=== PATIENT | female | born 1980 | race Two or more races ===

== ENCOUNTER 2018-03-10 10:49 | Inpatient (IN) | payer SELFPAY ==
[~2018-03-10] VITALS: Ht 160 cm; Wt 82.1 kg
[2018-03-10] MEDS ORDERED: CITRIC ACID/SODIUM CITRATE 30 ML SOLUTION. PO ONE (11:00)
[2018-03-10 11:46] LABS: BASO % 1 % (0-3); EOS # 0.1 x10^3/uL (0.0-0.7); EOS % 2 % (0-3); HEMATOCRIT 38.8 % (36.0-47.0); HEMOGLOBIN 13.5 g/dL (12.0-15.5); LYMPH # 1.5 x10^3/uL (1.0-4.8); LYMPH % 17 % (24-48); MEAN CORPUSCULAR HEMOGLOBIN 32 pg (25-35); MEAN CORPUSCULAR HGB CONC 35 g/dL (31-37); MEAN CORPUSCULAR VOLUME 92 fL (79-100); MONO # 0.6 x10^3/uL (0.0-1.1); MONO % 7 % (0-9); NEUT # 6.6 x10^3uL (1.8-7.7); NEUT % 74 % (31-73); PLATELET COUNT 195 x10^3/uL (140-400); RED BLOOD COUNT 4.25 x10^6/uL (3.50-5.40); RED CELL DISTRIBUTION WIDTH 13.1 % (11.5-14.5); WHITE BLOOD COUNT 8.9 x10^3/uL (4.0-11.0)
[2018-03-10] MEDS: IV RINGERS,LACTATED 1000ML 1,000 ML IV PRN ×2 (12:19→21:53)
--- NOTE | 2018-03-10 12:19 | PDOC1 ---
OB - History Hx of Present Care: Good Care Ultrasounds: Normal mid trimester US Obstetrical Complications: None Medical Complications: None Past Family/Social History * Past Medical, Surgical, Family and Obstetric Histories reviewed from chart. Rubella: Immune RPR/VDRL: Negative GBS Status: Negative HBsAG: Negative OB - Chief Complaint & HPI Date of Admission: Date of Admission: Mar 10, 2018 at 10:49 Chief Complaint/History : 4 Para: 2 EGA: 39 Reason for admission: section Indication for : desires repeat Admission Nurse Assessment Rev: Yes OB - Admission Exam Physical Exam HEENT: Normal Heart: Regular Rate Lungs: Clear Abdomen: Gravid, Non tender, Soft Extremities: Edema Reflexes: Normal Cervical Dilatation: None Effacement: 25% Station: Ballotable Membranes: Intact Amniotic Fluid: Clear Heart Rate: Normal Accelerations: Accelerations Present Decelerations: No decelerations Contractions on Admission: >10 Minutes Apart Intensity: Mild Text A: 39 wks IUP Previous c/s P: Admit for repeat c/s. ERICK LINDSAY Jr, MD Mar 10, 2018 12:19
[2018-03-10] MEDS ORDERED: MORPHINE PF 5 MG/10 ML VIAL. ONE (12:47)
[2018-03-10] MEDS ORDERED: fentaNYL PF VIAL 100 MCG/2 ML VIAL ONE (12:48)
[2018-03-10] MEDS ORDERED: PHENYLEPHRINE in 0.9% NACL PF 1 MG/10 ML SYRINGE. IV ONE (12:48)
[2018-03-10] MEDS ORDERED: BUPIVACAINE MPF 0.75% DEXTROSE 2 ML AMPUL. ONE (12:54)
[2018-03-10] MEDS ORDERED: ceFAZolin 2GM PREMIX 2 GM/50 ML BAG IV ONE (13:00)
[2018-03-10] MEDS ORDERED: OXYTOCIN 10 UNIT/ML VIAL. ONE (13:02)
[2018-03-10] MEDS ORDERED: miSOPROStol 200MCG TAB 200 MCG TABLET PR ONE (13:15)
[2018-03-10] MEDS ORDERED: miSOPROStol 200MCG TAB 200 MCG TABLET ONE (13:16)
--- NOTE | 2018-03-10 13:56 | PDOC4 ---
OB Operative Note Date: Mar 10, 2018 PRE OP DIAGNOSIS: Previoujs C- section POST OP DIAGNOSIS: Previous C- section OPERATION PERFORMED: [facility] Surgeon Dr. Biswas Anesthesia: Regional (Spinal) Blood Loss 700 ml Specimen placenta and OB Findings: Position (Vertex), Sex (Male), (8/9), Weight (9 Lb 10 oz), Nuchal Cord (x1) Complications none Additional Remarks pt. ERICK Lockett Jr, MD Mar 10, 2018 13:56
[2018-03-10] MEDS ORDERED: diphenhydrAMINE ORAL ELIXIR 12.5 MG/5 ML ML PO PRN (14:00)
[2018-03-10] MEDS ORDERED: OXYTOCIN 30 UNIT/500 ML PREMIX 500 ML IV PRN (14:00)
[2018-03-10] MEDS ORDERED: 0.9 % SODIUM CHLORIDE 10 ML DISP.SYRIN. IV PRN (14:00)
[2018-03-10] MEDS ORDERED: SIMETHICONE 80 MG TAB.CHEW PO PRN (14:00)
[2018-03-10] MEDS ORDERED: ZOLPIDEM 5 MG TABLET. PO PRN (14:00)
[2018-03-10] MEDS ORDERED: ONDANSETRON PF 4 MG/2 ML VIAL. IV PRN (14:00)
--- NOTE | 2018-03-10 14:37 | OP ---
DATE OF SURGERY: 03/10/2018 PREOPERATIVE DIAGNOSES: 1. 39 weeks intrauterine . 2. Previous section. POSTOPERATIVE DIAGNOSES: 1. 39 weeks intrauterine . 2. Previous section. PROCEDURE: Repeat low transverse section. SURGEON: Erick Biswas MD. ANESTHESIA: Spinal. ESTIMATED BLOOD LOSS: 700 mL. COMPLICATIONS: None. FINDINGS: Viable male , Apgars 8 and 9, weight 9 pounds 10 ounces, nuchal cord x 1, 3-vessel cord placenta delivered manually. SUMMARY: A 37-year-old female who presented at term gestation for repeat section. Was counseled on risks, benefits and expectations as well as for scar revision and voiced clear understanding to proceed. DESCRIPTION OF PROCEDURE: The patient was taken to surgery suite and placed in dorsal supine position. She was prepped with ChloraPrep and draped in a sterile fashion. After adequate anesthesia, an elliptical incision was made with the scalpel to remove the previous scar along with Allis clamps and Bovie cautery. The incision was then carried through the fascia. The fascia was extended superiorly as well as inferiorly with curved Yanez scissors. The peritoneum was grasped with 2 hemostats and entered sharply with Metzenbaum scissors and this incision was extended superiorly as well as inferiorly. There were a few abdominal adhesions of the omentum that were bluntly dissected off. Low transverse hysterotomy incision made with a scalpel down to the amniotic sac. Hysterotomy incision was extended laterally and superiorly digitally. Amniotomy was performed with Allis clamp, which elicited moderate amount of clear fluid. With fundal pressure, the infant's head was delivered in a smooth atraumatic manner. With additional fundal pressure, the posterior shoulder was delivered followed by the anterior shoulder. Rest of the male was delivered. Nuchal cord x 1 was visualized and reduced. Infant was suctioned with bulb syringe orally and nasally, umbilical cord was clamped twice and cut and viable male was handed to waiting nursing staff. Umbilical cord blood was then obtained. Three-vessel cord placenta was delivered manually. The uterus was then exteriorized and cleared of clot and debris with a moist lap. The hysterotomy incision was reapproximated using 1-0 Vicryl suture in a running locked fashion and imbricated layer was utilized for better hemostasis. There is a [id number] suture placed in the right apex of the hysterotomy incision for better hemostasis. An 800 mcg Cytotec was also placed inside the uterus to help with uterine tone. The uterus then palpated firm. Fallopian tubes and ovaries appeared normal bilaterally. Posterior cul-de-sac was cleared of clot and debris with a moist lap. The pericolic gutters were cleared of clot and debris with moist lap. There were some omental adhesions to the uterus as well as the abdominal sidewall, which were removed with the aid of Bovie cautery. The hysterotomy incision was hemostatic. Interceed was placed over the hysterotomy incision in an inverted T fashion. The Glynn ring retractor was removed. The peritoneum was reapproximated using 1-0 Vicryl suture in running fashion. Fascia was reapproximated with 0 Vicryl suture in a running fashion. Subcutaneous tissue was reapproximated using 1-0 Vicryl suture in a running fashion. The skin was reapproximated using shahida. The patient tolerated the procedure well, was sent to recovery room in stable condition. Sponge and needle count correct x 3. ERICK BIWSAS MD DR: SAMEER/sayda JOB#: [id number] / [id number]
[2018-03-10] MEDS ORDERED: KETOROLAC 30 MG/ML VIAL. IV PRN (15:00)
[2018-03-10 16:45] VITALS: BP_SYST 103; BP_SYST 112; BP_DIAS 46; BP_DIAS 54
--- NOTE | 2018-03-10 16:52 | NUR ---
Cytotec back timed to time of administration, administered via uterine by Dr. Biswas.
[2018-03-10] MEDS: KETOROLAC 30 MG/ML VIAL. IV PRN (17:00)
[2018-03-10] MEDS: FERROUS SULFATE 325 MG TABLET. PO SCH (17:00)
[2018-03-10 17:09] LABS: BILIRUBIN,URINE NEGATIVE (NEG); CLARITY,URINE CLEAR; COLOR,URINE YELLOW; NITRITE,URINE NEGATIVE (NEG); PROTEIN,URINE NEGATIVE (NEG-TRACE); UROBILINOGEN,URINE 0.2 mg/dL (0.2 mg/dL)
[2018-03-10 17:14] LABS: BACTERIA,URINE FEW /HPF (0-FEW); RBC,URINE 0 /HPF (0-2); SQUAMOUS EPITHELIAL CELL,UR OCC /LPF; WBC,URINE RARE /HPF (0-4)
[2018-03-10 18:15] VITALS: BP 113/45
[2018-03-10 20:30] VITALS: BP 111/53
[2018-03-10 23:35] VITALS: BP 94/44
[2018-03-11] MEDS: KETOROLAC 30 MG/ML VIAL. IV PRN (02:20)
[2018-03-11 04:49] LABS: BASO % 0 % (0-3); EOS % 0 % (0-3); HEMATOCRIT 31.9 % (36.0-47.0); HEMOGLOBIN 11.7 g/dL (12.0-15.5); LYMPH # 1.6 x10^3/uL (1.0-4.8); LYMPH % 14 % (24-48); MEAN CORPUSCULAR HEMOGLOBIN 33 pg (25-35); MEAN CORPUSCULAR HGB CONC 37 g/dL (31-37); MEAN CORPUSCULAR VOLUME 90 fL (79-100); MONO # 1.1 x10^3/uL (0.0-1.1); MONO % 10 % (0-9); NEUT # 8.9 x10^3uL (1.8-7.7); NEUT % 76 % (31-73); PLATELET COUNT 158 x10^3/uL (140-400); RED BLOOD COUNT 3.53 x10^6/uL (3.50-5.40); RED CELL DISTRIBUTION WIDTH 12.9 % (11.5-14.5); WHITE BLOOD COUNT 11.6 x10^3/uL (4.0-11.0)
[2018-03-11 05:39] VITALS: BP 129/72
--- NOTE | 2018-03-11 06:12 | PDOC ---
OB Progress Note Date of Service 03/11/18 Time of Evaluation 0610 Notes Pt. feeling well. No complaints. Lab Laboratory Tests Test 03/10/18 11:35 03/10/18 16:50 03/11/18 04:25 White Blood Count 8.9 x10^3/uL (4.0-11.0) 11.6 x10^3/uL (4.0-11.0) Red Blood Count 4.25 x10^6/uL (3.50-5.40) 3.53 x10^6/uL (3.50-5.40) Hemoglobin 13.5 g/dL (12.0-15.5) 11.7 g/dL (12.0-15.5) Hematocrit 38.8 % (36.0-47.0) 31.9 % (36.0-47.0) Mean Corpuscular Volume 92 fL (79-100) 90 fL (79-100) Mean Corpuscular Hemoglobin 32 pg (25-35) 33 pg (25-35) Mean Corpuscular Hemoglobin Concent 35 g/dL (31-37) 37 g/dL (31-37) Red Cell Distribution Width 13.1 % (11.5-14.5) 12.9 % (11.5-14.5) Platelet Count 195 x10^3/uL (140-400) 158 x10^3/uL (140-400) Neutrophils (%) (Auto) 74 % (31-73) 76 % (31-73) Lymphocytes (%) (Auto) 17 % (24-48) 14 % (24-48) Monocytes (%) (Auto) 7 % (0-9) 10 % (0-9) Eosinophils (%) (Auto) 2 % (0-3) 0 % (0-3) Basophils (%) (Auto) 1 % (0-3) 0 % (0-3) Neutrophils # (Auto) 6.6 x10^3uL (1.8-7.7) 8.9 x10^3uL (1.8-7.7) Lymphocytes # (Auto) 1.5 x10^3/uL (1.0-4.8) 1.6 x10^3/uL (1.0-4.8) Monocytes # (Auto) 0.6 x10^3/uL (0.0-1.1) 1.1 x10^3/uL (0.0-1.1) Eosinophils # (Auto) 0.1 x10^3/uL (0.0-0.7) 0.0 x10^3/uL (0.0-0.7) Basophils # (Auto) 0.0 x10^3/uL (0.0-0.2) 0.0 x10^3/uL (0.0-0.2) Treponema pallidum Antibody Nonreactive (Nonreactive) Urine Collection Type Unknown Urine Color Yellow Urine Clarity Clear Urine pH 7.0 Urine Specific [place] <=1.005 Urine Protein Negative mg/dL (NEG-TRACE) Urine Glucose (UA) Negative mg/dL (NEG) Urine Ketones (Stick) Negative mg/dL (NEG) Urine Blood Negative (NEG) Urine Nitrite Negative (NEG) Urine Bilirubin Negative (NEG) Urine Urobilinogen Dipstick 0.2 mg/dL (0.2 mg/dL) Urine Leukocyte Esterase Negative (NEG) Urine RBC 0 /HPF (0-2) Urine WBC Rare /HPF (0-4) Urine Squamous Epithelial Cells Occ /LPF Urine Bacteria Few /HPF (0-FEW) Laboratory Tests Test 03/10/18 11:35 03/10/18 16:50 03/11/18 04:25 White Blood Count 8.9 x10^3/uL (4.0-11.0) 11.6 x10^3/uL (4.0-11.0) Red Blood Count 4.25 x10^6/uL (3.50-5.40) 3.53 x10^6/uL (3.50-5.40) Hemoglobin 13.5 g/dL (12.0-15.5) 11.7 g/dL (12.0-15.5) Hematocrit 38.8 % (36.0-47.0) 31.9 % (36.0-47.0) Mean Corpuscular Volume 92 fL (79-100) 90 fL (79-100) Mean Corpuscular Hemoglobin 32 pg (25-35) 33 pg (25-35) Mean Corpuscular Hemoglobin Concent 35 g/dL (31-37) 37 g/dL (31-37) Red Cell Distribution Width 13.1 % (11.5-14.5) 12.9 % (11.5-14.5) Platelet Count 195 x10^3/uL (140-400) 158 x10^3/uL (140-400) Neutrophils (%) (Auto) 74 % (31-73) 76 % (31-73) Lymphocytes (%) (Auto) 17 % (24-48) 14 % (24-48) Monocytes (%) (Auto) 7 % (0-9) 10 % (0-9) Eosinophils (%) (Auto) 2 % (0-3) 0 % (0-3) Basophils (%) (Auto) 1 % (0-3) 0 % (0-3) Neutrophils # (Auto) 6.6 x10^3uL (1.8-7.7) 8.9 x10^3uL (1.8-7.7) Lymphocytes # (Auto) 1.5 x10^3/uL (1.0-4.8) 1.6 x10^3/uL (1.0-4.8) Monocytes # (Auto) 0.6 x10^3/uL (0.0-1.1) 1.1 x10^3/uL (0.0-1.1) Eosinophils # (Auto) 0.1 x10^3/uL (0.0-0.7) 0.0 x10^3/uL (0.0-0.7) Basophils # (Auto) 0.0 x10^3/uL (0.0-0.2) 0.0 x10^3/uL (0.0-0.2) Treponema pallidum Antibody Nonreactive (Nonreactive) Urine Collection Type Unknown Urine Color Yellow Urine Clarity Clear Urine pH 7.0 Urine Specific [place] <=1.005 Urine Protein Negative mg/dL (NEG-TRACE) Urine Glucose (UA) Negative mg/dL (NEG) Urine Ketones (Stick) Negative mg/dL (NEG) Urine Blood Negative (NEG) Urine Nitrite Negative (NEG) Urine Bilirubin Negative (NEG) Urine Urobilinogen Dipstick 0.2 mg/dL (0.2 mg/dL) Urine Leukocyte Esterase Negative (NEG) Urine RBC 0 /HPF (0-2) Urine WBC Rare /HPF (0-4) Urine Squamous Epithelial Cells Occ /LPF Urine Bacteria Few /HPF (0-FEW) Medications Current Medications Cefazolin Sodium/ Dextrose 50 ml @ 100 mls/hr 1X ONCE IV ; Start 03/10/18 at 11:00; Stop 03/10/18 at 11:29; Status DC Citric Acid/ Sodium Citrate (Bicitra) 30 ml 1X ONCE PO Last administered on at 12:45; Start 03/10/18 at 11:00; Stop 03/10/18 at 11:21; Status DC Ringer's Solution 1,000 ml @ 125 mls/hr Q8H PRN IV PER PROTOCOL Last administered on 03/10/18at 21:53; Start 03/10/18 at 12:00 Morphine Sulfate (Morphine Preservative Free) 5 mg STK-MED ONCE .ROUTE ; Start 03/10/18 at 12:47; Stop 03/10/18 at 12:49; Status DC Fentanyl Citrate (Fentanyl 2ml Vial) 100 mcg STK-MED ONCE .ROUTE ; Start at 12:48; Stop 03/10/18 at 12:50; Status DC Phenylephrine HCl (PHENYLEPHRINE in 0.9% NACL PF) 1 mg STK-MED ONCE IV ; Start 03/10/18 at 12:48; Stop 03/10/18 at 12:50; Status DC Bupivacaine HCl/ Dextrose (Marcaine Spinal 0.75%) 2 ml STK-MED ONCE .ROUTE ; Start 03/10/18 at 12:54; Stop 03/10/18 at 12:56; Status DC Oxytocin (Pitocin) 10 unit STK-MED ONCE .ROUTE ; Start 03/10/18 at 13:02; Stop 03/10/18 at 13:04; Status DC Ephedrine Sulfate (Akovaz) 50 mg STK-MED ONCE .ROUTE ; Start 03/10/18 at 13:09; Stop 03/10/18 at 13:11; Status DC Misoprostol (Cytotec 200mcg Tab) 200 mcg STK-MED ONCE .ROUTE ; Start 03/10/18 at 13:16; Stop 03/10/18 at 13:18; Status DC Sodium Chloride (Normal Saline Flush) 3 ml QSHIFT PRN IV AFTER MEDS AND BLOOD DRAWS; Start 03/10/18 at 14:00 Oxytocin/Sodium Chloride 500 ml @ 125 mls/hr CONT PRN IV EXCESSIVE POST- BLEEDING; Start 03/10/18 at 14:00; Stop 03/10/18 at 21:59; Status DC Ibuprofen (Motrin) 800 mg PRN Q4HRS PRN PO INFLAMMATION; Start 03/10/18 at 14: 00 Ondansetron HCl (Zofran) 4 mg PRN Q6HRS PRN IV NAUSEA/VOMITING; Start 03/10/18 at 14:00 Docusate Sodium (Colace) 100 mg PRN BID PRN PO CONSTIPATION; Start 03/10/18 at 14:00 Al Hydroxide/Mg Hydroxide (Mylanta Plus Xs) 30 ml PRN Q4HRS PRN PO HEARTBURN / GAS; Start 03/10/18 at 14:00 Simethicone (Gas-X) 80 mg PRN AFTMEALHC PRN PO GAS / BLOATING; Start 03/10/18 at 14:00 Diphenhydramine HCl (Benadryl Oral Elixir) 12.5 mg PRN Q6HRS PRN PO ITCHING; Start 03/10/18 at 14:00 Ferrous Sulfate (Feosol) 325 mg BIDWMEALS PO ; Start 03/10/18 at 17:00 Zolpidem Tartrate (Ambien) 5 mg PRN QHS PRN PO INSOMNIA, MAY REPEAT X1; Start 03/10/18 at 14:00 Oxycodone/ Acetaminophen (Percocet 5/325) 2 tab PRN Q4HRS PRN PO MODERATE PAIN , SEVERE PAIN; Start 03/10/18 at 14:00 Ketorolac Tromethamine (Toradol 30mg Vial) 30 mg PRN Q6HRS PRN IV PAIN Last administered on 03/11/18at 02:20; Start 03/10/18 at 14:00; Stop 03/15/18 at 13:59 Ketorolac Tromethamine (Toradol 30mg Vial) 30 mg PRN Q6HRS PRN IV PAIN; Start 03/10/18 at 15:00; Stop 03/15/18 at 14:59; Status UNV Misoprostol (Cytotec 200mcg Tab) 800 mcg 1X ONCE IN Last administered on at 13:24; Start 03/10/18 at 13:15; Stop 03/10/18 at 16:50; Status DC Exam Abd: soft, non tender, fundus firm Assessment PPD#2 s/p Plan of Care: See new orders (D/c home.) ERICK LINDSAY Jr, MD Mar 11, 2018 06:12
[2018-03-11 06:15] VITALS: BP 82/43
[2018-03-11] MEDS: FERROUS SULFATE 325 MG TABLET. PO SCH (08:00)
[2018-03-11] MEDS: IBUPROFEN 400 MG TABLET. PO PRN ×2 (09:48→15:55)
[2018-03-11] MEDS: DOCUSATE SODIUM 100 MG CAPSULE. PO PRN (09:50)
[2018-03-11 13:04] VITALS: BP 92/43
[2018-03-11 17:46] VITALS: BP 98/66
[2018-03-11 23:04] VITALS: BP 94/53
[2018-03-12] MEDS: IBUPROFEN 400 MG TABLET. PO PRN ×3 (03:36→19:33)
[2018-03-12 06:03] VITALS: BP 111/59
--- NOTE | 2018-03-12 08:00 | PDOC ---
OB Progress Note Date of Service 03/12/18 Time of Evaluation 0750 Notes Pt. feeling well. Pain controlled. No complaints. Lab Laboratory Tests Test 03/10/18 11:35 03/10/18 16:50 03/11/18 04:25 White Blood Count 8.9 x10^3/uL (4.0-11.0) 11.6 x10^3/uL (4.0-11.0) Red Blood Count 4.25 x10^6/uL (3.50-5.40) 3.53 x10^6/uL (3.50-5.40) Hemoglobin 13.5 g/dL (12.0-15.5) 11.7 g/dL (12.0-15.5) Hematocrit 38.8 % (36.0-47.0) 31.9 % (36.0-47.0) Mean Corpuscular Volume 92 fL (79-100) 90 fL (79-100) Mean Corpuscular Hemoglobin 32 pg (25-35) 33 pg (25-35) Mean Corpuscular Hemoglobin Concent 35 g/dL (31-37) 37 g/dL (31-37) Red Cell Distribution Width 13.1 % (11.5-14.5) 12.9 % (11.5-14.5) Platelet Count 195 x10^3/uL (140-400) 158 x10^3/uL (140-400) Neutrophils (%) (Auto) 74 % (31-73) 76 % (31-73) Lymphocytes (%) (Auto) 17 % (24-48) 14 % (24-48) Monocytes (%) (Auto) 7 % (0-9) 10 % (0-9) Eosinophils (%) (Auto) 2 % (0-3) 0 % (0-3) Basophils (%) (Auto) 1 % (0-3) 0 % (0-3) Neutrophils # (Auto) 6.6 x10^3uL (1.8-7.7) 8.9 x10^3uL (1.8-7.7) Lymphocytes # (Auto) 1.5 x10^3/uL (1.0-4.8) 1.6 x10^3/uL (1.0-4.8) Monocytes # (Auto) 0.6 x10^3/uL (0.0-1.1) 1.1 x10^3/uL (0.0-1.1) Eosinophils # (Auto) 0.1 x10^3/uL (0.0-0.7) 0.0 x10^3/uL (0.0-0.7) Basophils # (Auto) 0.0 x10^3/uL (0.0-0.2) 0.0 x10^3/uL (0.0-0.2) Treponema pallidum Antibody Nonreactive (Nonreactive) Urine Collection Type Unknown Urine Color Yellow Urine Clarity Clear Urine pH 7.0 Urine Specific [place] <=1.005 Urine Protein Negative mg/dL (NEG-TRACE) Urine Glucose (UA) Negative mg/dL (NEG) Urine Ketones (Stick) Negative mg/dL (NEG) Urine Blood Negative (NEG) Urine Nitrite Negative (NEG) Urine Bilirubin Negative (NEG) Urine Urobilinogen Dipstick 0.2 mg/dL (0.2 mg/dL) Urine Leukocyte Esterase Negative (NEG) Urine RBC 0 /HPF (0-2) Urine WBC Rare /HPF (0-4) Urine Squamous Epithelial Cells Occ /LPF Urine Bacteria Few /HPF (0-FEW) Medications Current Medications Cefazolin Sodium/ Dextrose 50 ml @ 100 mls/hr 1X ONCE IV ; Start 03/10/18 at 11:00; Stop 03/10/18 at 11:29; Status DC Citric Acid/ Sodium Citrate (Bicitra) 30 ml 1X ONCE PO Last administered on at 12:45; Start 03/10/18 at 11:00; Stop 03/10/18 at 11:21; Status DC Ringer's Solution 1,000 ml @ 125 mls/hr Q8H PRN IV PER PROTOCOL Last administered on 03/10/18at 21:53; Start 03/10/18 at 12:00; Stop 03/12/18 at 07:43 ; Status DC Morphine Sulfate (Morphine Preservative Free) 5 mg STK-MED ONCE .ROUTE ; Start 03/10/18 at 12:47; Stop 03/10/18 at 12:49; Status DC Fentanyl Citrate (Fentanyl 2ml Vial) 100 mcg STK-MED ONCE .ROUTE ; Start at 12:48; Stop 03/10/18 at 12:50; Status DC Phenylephrine HCl (PHENYLEPHRINE in 0.9% NACL PF) 1 mg STK-MED ONCE IV ; Start 03/10/18 at 12:48; Stop 03/10/18 at 12:50; Status DC Bupivacaine HCl/ Dextrose (Marcaine Spinal 0.75%) 2 ml STK-MED ONCE .ROUTE ; Start 03/10/18 at 12:54; Stop 03/10/18 at 12:56; Status DC Oxytocin (Pitocin) 10 unit STK-MED ONCE .ROUTE ; Start 03/10/18 at 13:02; Stop 03/10/18 at 13:04; Status DC Ephedrine Sulfate (Akovaz) 50 mg STK-MED ONCE .ROUTE ; Start 03/10/18 at 13:09; Stop 03/10/18 at 13:11; Status DC Misoprostol (Cytotec 200mcg Tab) 200 mcg STK-MED ONCE .ROUTE ; Start 03/10/18 at 13:16; Stop 03/10/18 at 13:18; Status DC Sodium Chloride (Normal Saline Flush) 3 ml QSHIFT PRN IV AFTER MEDS AND BLOOD DRAWS; Start 03/10/18 at 14:00; Stop 03/12/18 at 07:43; Status DC Oxytocin/Sodium Chloride 500 ml @ 125 mls/hr CONT PRN IV EXCESSIVE POST- BLEEDING; Start 03/10/18 at 14:00; Stop 03/10/18 at 21:59; Status DC Ibuprofen (Motrin) 800 mg PRN Q4HRS PRN PO INFLAMMATION Last administered on at 03:36; Start 03/10/18 at 14:00 Ondansetron HCl (Zofran) 4 mg PRN Q6HRS PRN IV NAUSEA/VOMITING; Start 03/10/18 at 14:00; Stop 03/12/18 at 07:43; Status DC Docusate Sodium (Colace) 100 mg PRN BID PRN PO CONSTIPATION Last administered on 03/11/18at 09:50; Start 03/10/18 at 14:00 Al Hydroxide/Mg Hydroxide (Mylanta Plus Xs) 30 ml PRN Q4HRS PRN PO HEARTBURN / GAS; Start 03/10/18 at 14:00 Simethicone (Gas-X) 80 mg PRN AFTMEALHC PRN PO GAS / BLOATING Last administered on 03/11/18at 09:50; Start 03/10/18 at 14:00 Diphenhydramine HCl (Benadryl Oral Elixir) 12.5 mg PRN Q6HRS PRN PO ITCHING; Start 03/10/18 at 14:00 Ferrous Sulfate (Feosol) 325 mg BIDWMEALS PO ; Start 03/10/18 at 17:00; Stop at 19:02; Status DC Zolpidem Tartrate (Ambien) 5 mg PRN QHS PRN PO INSOMNIA, MAY REPEAT X1; Start 03/10/18 at 14:00 Oxycodone/ Acetaminophen (Percocet 5/325) 2 tab PRN Q4HRS PRN PO MODERATE PAIN , SEVERE PAIN; Start 03/10/18 at 14:00 Ketorolac Tromethamine (Toradol 30mg Vial) 30 mg PRN Q6HRS PRN IV PAIN Last administered on 03/11/18at 02:20; Start 03/10/18 at 14:00; Stop 03/12/18 at 07:43 ; Status DC Ketorolac Tromethamine (Toradol 30mg Vial) 30 mg PRN Q6HRS PRN IV PAIN; Start 03/10/18 at 15:00; Stop 03/15/18 at 14:59; Status UNV Misoprostol (Cytotec 200mcg Tab) 800 mcg 1X ONCE [place] Last administered on at 13:24; Start 03/10/18 at 13:15; Stop 03/10/18 at 16:50; Status DC Cefazolin Sodium/ Dextrose (Ancef 2gm Premix) 2 gm STK-MED ONCE IV ; Start 03/10 at 13:00; Stop 03/11/18 at 09:14; Status DC Exam Abd: soft, mild tenderness, fundus firm Incision site intact and dry. Assessment POD#2 s/p repeat c/s Plan of Care: Continue current Tx, Mgmt ERICK LINDSAY Jr, MD Mar 12, 2018 08:00
[2018-03-12] MEDS: DOCUSATE SODIUM 100 MG CAPSULE. PO PRN ×2 (08:02→19:33)
[2018-03-12] MEDS: oxyCODONE/APAP 5/325 1 TAB TABLET PO PRN ×3 (08:02→19:33)
[2018-03-12 11:20] VITALS: BP 98/68
[2018-03-12 17:08] VITALS: BP 100/47
[2018-03-12] MEDS: MAG HYDROX/ALUMINUM HYD/SIMETH 30 ML ORAL.SUSP PO PRN (19:49)
[2018-03-12 21:02] VITALS: BP 101/35
[2018-03-13] MEDS: DOCUSATE SODIUM 100 MG CAPSULE. PO PRN (05:18)
[2018-03-13] MEDS: oxyCODONE/APAP 5/325 1 TAB TABLET PO PRN ×2 (05:19→13:44)
[2018-03-13] MEDS: IBUPROFEN 400 MG TABLET. PO PRN (05:19)
[2018-03-13 05:30] VITALS: BP 93/46
--- NOTE | 2018-03-13 07:25 | PDOC3 ---
OB DISCHARGE SUMMARY DATE OF ADMISSION: 03/10/18 DATE OF DISCHARGE: 03/13/18 REASON FOR ADMISSION: section INTRAPARTUM PROCEDURES: : Low Cerv Trans DISCHARGE DIAGNOSIS: Term Delivered DISCHARGE INFORMATION: Activity (ad sam), Diet (regular), Instructions (pelvic rest x 6 wks, no driving x 2 wks, no lifting > 20 lbs. x 4 wks) HOSPITAL COURSE Term gestation delivered via repeat c/s without any complications. ERICK LINDSAY Jr, MD Mar 13, 2018 07:25
--- NOTE | 2018-03-13 07:26 | DISCH ---
DISCHARGE INSTRUCTIONS Condition on Discharge Condition on Discharge: Stable Activity After Discharge Activity Instructions for Disc: Activity as tolerated Lifting Instructions after Dis: No heavy lifting Driving Instructions after Dis: No driving for 2 weeks Diet after Discharge Diet after Discharge: Regular Contacting the DROrtiz after DC Call your doctor for: Concerns you may have Follow-Up Follow up with: Dr. Biswas on Friday for staple removal. ERICK BISWAS Jr, MD Mar 13, 2018 07:26
[2018-03-13] MEDS ORDERED: DOCU-109 PO (07:28)
[2018-03-13] MEDS ORDERED: IBUP-1027 PO (07:28)
[2018-03-13] MEDS ORDERED: OXYC1TAB15 PO (07:28)
[2018-03-13] MEDS: MAG HYDROX/ALUMINUM HYD/SIMETH 30 ML ORAL.SUSP PO PRN (07:49)
[2018-03-13] MEDS ORDERED: BISACODYL 10 MG SUPP.RECT. PR PRN (08:45)
[2018-03-13 13:47] VITALS: BP 94/57
--- NOTE | 2018-03-13 13:48 | NUR ---
Discharge Discharge instructions given to patient at this time, no questions or concerns at this time. To follow up on fri. at 10am 03/18/[address] Biswas in office.
== END 2018-03-13 15:39 | disposition home or self-care (01) | DRG 788 ==
LOC: 3 SO LND 10:49 → 3 NORTH 16:33
PROVIDERS: ADMIT Obstetrics & Gynecology; ATTEND Obstetrics & Gynecology
PROC: 10D00Z1 Extraction of Products of Conception, Low, Open Approach (ICD-10-PCS; principal; 2018-03-10)
DX: O34.211 Maternal care for low transverse scar from previous cesarean delivery (principal); O69.81X0 Labor and delivery complicated by cord around neck, without compression, not applicable or unspecified; Z37.0 Single live birth; Z3A.39 39 weeks gestation of pregnancy
CPT/HCPCS: 36415; 81001; 85025; 86592; 86850; 86900; 86901; C1781; J0696; J1885; J2270; J2370; J2590; J3010; J7120